=== PATIENT | female | born 1965 | race Caucasian/White ===

== ENCOUNTER 2018-02-11 00:47 | Inpatient (IN) | payer OTHER ==
[~2018-02-11] VITALS: Ht 152.4 cm; Wt 81.5 kg
[2018-02-11 01:13] LABS: BASOPHIL (%) 0.6 % (0-1); BASOPHIL COUNT 0.1 K/uL (0-0.1); EOSINOPHIL (%) 0.8 % (0-5); EOSINOPHIL COUNT 0.1 K/uL (0-0.3); HEMATOCRIT 41.5 % (36.0-46.0); HEMOGLOBIN 13.6 G/DL (11.9-15.5); IMMATURE GRANULOCYTE (%) 0.5 % (0.0-0.7); LYMPHOCYTE (%) 26.4 % (15-42); LYMPHOCYTE COUNT 3.3 K/uL (1.0-2.8); MCH 28.6 PG (29.0-34.0); MCHC 32.8 G/DL (30.0-36.0); MCV 87.4 FL (83-99); MONOCYTE (%) 6.8 % (3-12); MONOCYTE COUNT 0.8 K/uL (0-0.8); NEUTROPHIL (%) 64.9 % (45-76); NEUTROPHIL COUNT 8.1 K/uL (1.8-6.4); PLATELET COUNT 387 K/uL (156-360); RBC DIS.WIDTH-CV 14.5 % (11.8-14.6); RBC DIS.WIDTH-SD 46.3 % (39-53); RED BLOOD COUNT 4.75 M/uL (3.80-5.20); WHITE BLOOD COUNT 12.4 K/uL (4.1-10.2)
[2018-02-11 01:18] LABS: AMYLASE 139 IU/L (1-118); CHLORIDE 102 mEq/L (99-109); POTASSIUM 3.5 mEq/L (3.7-5.4); SODIUM 140 mEq/L (136-147)
[2018-02-11 01:20] LABS: GLUCOSE 132 mg/dL (70-99)
[2018-02-11 01:23] LABS: SERUM ETHYL ALCOHOL 215 mg/dL
[2018-02-11 01:24] LABS: CREATININE 0.7 mg/dL (0.6-1.3)
[2018-02-11 01:25] LABS: UREA NITROGEN (BUN) 11 mg/dL (9-23)
[2018-02-11 01:27] LABS: LIPASE 730 U/L (1.0-51.0)
[2018-02-11 01:33] LABS: QUANTITATIVE HCG < 4.0 MIU/ML
[2018-02-11 01:35] LABS: GFR ESTIMATE (CALCULATED) > 59 mL/min/
[2018-02-11 04:54] VITALS: BP 123/65
[2018-02-11 08:14] VITALS: BP 121/71
[2018-02-11 11:22] VITALS: BP 140/74
[2018-02-11 15:08] VITALS: BP 132/64
[2018-02-11 19:43] VITALS: BP 130/62
[2018-02-11 23:59] VITALS: BP 128/60
[2018-02-12 00:42] LABS: APPEARANCE CLEAR ((CLEAR)); BILIRUBIN NEGATIVE; BLOOD NEGATIVE; COLOR STRAW ((YELLOW)); GLUCOSE (STRIP) NEGATIVE; KETONES NEGATIVE; LEUKOCYTES NEGATIVE; NITRITE NEGATIVE; PROTEIN (STRIP) NEGATIVE; SPECIFIC GRAVITY 1.006 (1.000-1.030); UCUL ADDED? NO; UROBILINOGEN 0.2 MG/DL (0.2-1.0)
[2018-02-12 05:18] VITALS: BP 137/78
[2018-02-12 06:30] LABS: BENZODIAZEPINES, URINE SCREEN Negative (200 ng/mL)
[2018-02-12 06:51] LABS: MCH 28.4 PG (29.0-34.0); MCHC 31.4 G/DL (30.0-36.0); MCV 90.4 FL (83-99); NRBC (%) 0.9 /100 WBC (0-0); PLATELET COUNT 293 K/uL (156-360); RBC DIS.WIDTH-CV 14.8 % (11.8-14.6); RBC DIS.WIDTH-SD 49.1 % (39-53); RED BLOOD COUNT 3.87 M/uL (3.80-5.20)
[2018-02-12 07:10] VITALS: BP 131/58
[2018-02-12 07:14] LABS: ALBUMIN 3.7 G/DL (3.2-4.8); ALKALINE PHOSPHATASE 45 IU/L (3-129); ALT (GPT) 8 IU/L (3-49); AST (GOT) 14 IU/L (2-34); CHLORIDE 101 MEQ/L (99-109); CREATININE 0.5 MG/DL (0.6-1.3); GFR ESTIMATE (CALCULATED) > 59 mL/min/; GLUCOSE 125 mg/dL (70-99); LIPASE 58 U/L (1.0-51.0); POTASSIUM 3.9 MEQ/L (3.7-5.4); SODIUM 135 MEQ/L (136-147); TOTAL BILIRUBIN 0.5 MG/DL (0.0-1.0); UREA NITROGEN (BUN) 4 mg/dL (9-23)
[2018-02-12 12:04] VITALS: BP 120/676
[2018-02-12 16:22] VITALS: BP 135/68
[2018-02-12 19:54] VITALS: BP 119/58
[2018-02-12 23:36] VITALS: BP 123/59
[2018-02-13 03:54] VITALS: BP 133/63
[2018-02-13 07:41] VITALS: BP 135/73
[2018-02-13 12:02] VITALS: BP 140/67
[2018-02-13 16:24] VITALS: BP 126/70
[2018-02-13 20:14] VITALS: BP 122/59
[2018-02-13 23:41] VITALS: BP 143/67
[2018-02-14 03:40] VITALS: BP 130/96
[2018-02-14 05:57] LABS: BASOPHIL (%) 0.6 % (0-1); BASOPHIL COUNT 0.1 K/uL (0-0.1); EOSINOPHIL (%) 2.6 % (0-5); EOSINOPHIL COUNT 0.2 K/uL (0-0.3); HEMATOCRIT 37.3 % (36.0-46.0); HEMOGLOBIN 11.6 G/DL (11.9-15.5); IMMATURE GRANULOCYTE (%) 0.2 % (0.0-0.7); LYMPHOCYTE (%) 21.7 % (15-42); LYMPHOCYTE COUNT 1.8 K/uL (1.0-2.8); MCH 28.3 PG (29.0-34.0); MCHC 31.1 G/DL (30.0-36.0); MONOCYTE (%) 8.6 % (3-12); MONOCYTE COUNT 0.7 K/uL (0-0.8); NEUTROPHIL (%) 66.3 % (45-76); NEUTROPHIL COUNT 5.6 K/uL (1.8-6.4); PLATELET COUNT 324 K/uL (156-360); RBC DIS.WIDTH-CV 14.6 % (11.8-14.6); RBC DIS.WIDTH-SD 48.8 % (39-53); WHITE BLOOD COUNT 8.4 K/uL (4.1-10.2)
[2018-02-14 06:33] LABS: CHLORIDE 105 MEQ/L (99-109); CREATININE 0.5 MG/DL (0.6-1.3); GFR ESTIMATE (CALCULATED) > 59 mL/min/; GLUCOSE 122 mg/dL (70-99); POTASSIUM 4.1 MEQ/L (3.7-5.4); SODIUM 137 MEQ/L (136-147); UREA NITROGEN (BUN) 4 mg/dL (9-23)
[2018-02-14 07:31] VITALS: BP 120/65
[2018-02-14 15:06] VITALS: BP 131/73
[2018-02-14 19:48] VITALS: BP 100/50
[2018-02-15 05:15] VITALS: BP 135/76
[2018-02-15 07:22] VITALS: BP 120/56
[2018-02-15] MEDS ORDERED: ENDOCET 5-3251 EACH PO (10:16)
[2018-02-15 12:09] VITALS: BP 122/67
== END 2018-02-15 13:15 | disposition home or self-care (01) | DRG 510 ==
LOC: TRA 00:47 → EDOF 02:35 → 3EAST 02:35 → ENRESERV 02:38 → 3EAST 04:13
PROVIDERS: Emergency Medicine; Physician Assistant; Surgery
DX: S52.501A Unspecified fracture of the lower end of right radius, initial encounter for closed fracture (principal); S52.601A Unspecified fracture of lower end of right ulna, initial encounter for closed fracture; S32.029A Unspecified fracture of second lumbar vertebra, initial encounter for closed fracture; S32.039A Unspecified fracture of third lumbar vertebra, initial encounter for closed fracture; S32.049A Unspecified fracture of fourth lumbar vertebra, initial encounter for closed fracture; S32.059A Unspecified fracture of fifth lumbar vertebra, initial encounter for closed fracture; K85.20 Alcohol induced acute pancreatitis without necrosis or infection; S61.511A Laceration without foreign body of right wrist, initial encounter; F10.129 Alcohol abuse with intoxication, unspecified; S00.03XA Contusion of scalp, initial encounter; W10.9XXA Fall (on) (from) unspecified stairs and steps, initial encounter
CPT/HCPCS: 70450; 71045; 71260; 72125; 73090; 73100; 73110; 74177; 76000; 80048; 80053; 80306 90; 81003; 82150; 83690; 84702; 85025; 85027; 86850; 86900; 86901; 93005; 94799; 99281; 99284; C1713; C9113; G0480; J0690; J1100; J1170; J1650; J1885; J2250; J2405; J2795; J7643